=== PATIENT | female | born 1980 | race Caucasian/White ===

== ENCOUNTER 2025-05-13 00:19 | Emergency (ER) | payer BC, SELFPAY ==
[2025-05-13 00:23] VITALS: BP 161/100
[2025-05-13 00:30] VITALS: BP 163/107
[2025-05-13 00:41] VITALS: BMI 27.5
--- NOTE | 2025-05-13 00:58 | ED.GENMED ---
History of Present Illness
<Brianna Elkins MD, Resident - Last Filed: 05/13/25 06:54>
General
Chief Complaint: Chest Pain
Source: patient
Time Seen by Provider: 05/13/25 00:29
History of Present Illness
History of Present Illness:
45-year-old female with past medical history of hypothyroidism presents to the ER for chest tightness and shortness of breath. While she was driving home from work around 11:30pm, she felt sudden onset shortness of breath, chest tightness, numbness
and tingling in her lips and cheeks and could not stop shaking. She feels like she was shot with adrenaline. The symptoms started to decrease and then she had another similar episode. This happened 4-5 times at which point she decided to come to
the hospital for further evaluation. She did sit in the parking lot for a few minutes before coming into the ER. While in the car, she endorses chest tightness in the center of her chest. Chest tightness has dissipated while in the ER and she now
describes it as a sharp left sided chest pain that radiates into the left side of her neck and left armpit. On her Apple Watch, her heart rate went into the 150s. She has no smoking history, has an IUD for control, no recent prolonger period
of immobilization. She has had an increased amount of stress in her life recently, but she was not thinking of anything stressful when the event occurs. She had a history of anxiety and panic attacks many years ago, but she has had no recurrence for
many years.
She did have a cold last week with fevers, chills, runny nose, sore throat. She had the flu shot in the middle of it and felt her cold symptoms got worse afterwards. Today was the first day she felt almost back to normal. There is no positional
chest pain or pleurisy.
Past History
<Brianna Elkins MD, Resident - Last Filed: 05/13/25 06:54>
Past History
ED Past Medical History: HTN, Hypothyroidism, Other (anxiety with panic attacks many years ago. ) and Other (R leg seroma )
ED Past Surgical History: Tonsilectomy and Other (Rotator cuff, plantar fasciitis )
Social History
Tobacco: Non-smoker
Alcohol: None
Drug: None
Personal:
Living: with family
Employment: Employed
Family History
Family History: CAD (Father, no early onset CAD )
Review of Systems
<Brianna Elkins MD, Resident - Last Filed: 05/13/25 06:54>
Review of Systems
Allergies reviewed?: Yes
Constitutional: Reports no symptoms
EENT: Reports no symptoms
Respiratory: Reports trouble breathing
Cardiac: Reports chest pain and palpitations
ABD/GI: Reports nausea
: Reports no symptoms
Musculoskeletal: Reports no symptoms
Skin: Reports no symptoms
Neurological: Reports dizzy
Endocrine: Reports no symptoms
Hematologic/Lymphatic: Reports no symptoms
Psychiatric: Reports no symptoms
Phy Exam
<Brianna Elkins MD, Resident - Last Filed: 05/13/25 06:54>
Physical Exam
Physical Exam:
General: Flushed, shaking, alert
Head: Atraumatic,
Neck: No carotid bruits
Cardiac: Regular S1, S2, no murmurs
Respiratory: Clear breath sounds bilaterally, no wheezes or rales
Abdomen: Soft, non-tender, non-distended, normal bowel sounds
Neurologic: non-focal
Extremities: No peripheral edema or erythema
Scores
<Brianna Elkins MD, Resident - Last Filed: 05/13/25 06:54>
Heart Score for Chest Pain Patients
STEMI patient?: No
History: Slightly or Non-Suspicious
ECG: Normal
Age: </= 45 years
Risk Factors: 1 or 2 Risk Factors
Troponin: </= Normal Limit
Heart Score for Chest Pain Patients: 1
Heart Score Risk: 2.5% MACE over next 6 weeks
Course
<Brianna Elkins MD, Resident - Last Filed: 05/13/25 06:54>
Orders/Labs/Results
Orders:
Orders
05/13/25 00:20
EKG [Electrocardiogram (*1)] Urgent
Reason for Study: Chest Pain
EKG- Treatment ONCE
05/13/25 00:39
Cardiac Monitoring- Treatment ONCE
05/13/25 00:40
Test Result ONCE
05/13/25 00:42
Complete Blood Count/With Diff Urgent
Comprehensive Metabolic Panel Urgent
HCG, Serum Qualitative Screen Urgent
Comment: Notify provider if positive test present
TSH Reflex To Free T4 Urgent
Troponin I Urgent
05/13/25 00:58
D-Dimer Urgent
05/13/25 01:48
Mag Hydrox/Al Hydrox/Simeth [Maalox] 30 ml Phenobarb/Hyoscy/Atropine/Scop [] 10 ml Viscous Lidocaine 2% [Xylocaine Viscous Cup] 10 ml PO NOW
Pantoprazole [Protonix IV] 40 mg IV NOW STA
05/13/25 01:58
Mag Hydrox/Al Hydrox/Simeth [Maalox] 30 ml .ROUTE .STK-MED ONE
Phenobarb/Hyoscy/Atropine/Scop [] 10 ml .ROUTE .STK-MED ONE
Viscous Lidocaine 2% [Xylocaine Viscous Cup] 15 ml .ROUTE .STK-MED ONE
05/13/25 02:01
EKG- Treatment ONCE
05/13/25 02:29
Troponin I Urgent
05/13/25 02:30
Electrocardiogram (*1) Urgent
Reason for Study: Chest Pain
Abnormal Lab Results
05/13/25
00:42
RBC 3.93 L 10^6/uL
(4.20-5.40)
Hct 36.3 L %
(37.0-47.0)
MCH 32.6 H pg
(27.0-31.0)
RDW 11.1 L %
(11.5-14.5)
05/13/25 00:42
05/13/25 00:42
Vital Signs
Initial and Last Documented VS:
Initial Vital Signs
Temp
97.7 F
05/13/25 00:21
Last Documented Vital Signs
Temp Pulse Resp BP Pulse Ox
97.7 F 86 14 131/89 99
05/13/25 00:21 05/13/25 04:00 05/13/25 04:00 05/13/25 04:00 05/13/25 04:00
<Ewelina López, - Last Filed: 05/13/25 03:55>
Orders/Labs/Results
Orders:
Orders
05/13/25 00:20
EKG [Electrocardiogram (*1)] Urgent
Reason for Study: Chest Pain
EKG- Treatment ONCE
05/13/25 00:39
Cardiac Monitoring- Treatment ONCE
05/13/25 00:40
Test Result ONCE
05/13/25 00:42
Complete Blood Count/With Diff Urgent
Comprehensive Metabolic Panel Urgent
HCG, Serum Qualitative Screen Urgent
Comment: Notify provider if positive test present
TSH Reflex To Free T4 Urgent
Troponin I Urgent
05/13/25 00:58
D-Dimer Urgent
05/13/25 01:48
Mag Hydrox/Al Hydrox/Simeth [Maalox] 30 ml Phenobarb/Hyoscy/Atropine/Scop [] 10 ml Viscous Lidocaine 2% [Xylocaine Viscous Cup] 10 ml PO NOW
Pantoprazole [Protonix IV] 40 mg IV NOW STA
05/13/25 01:58
Mag Hydrox/Al Hydrox/Simeth [Maalox] 30 ml .ROUTE .STK-MED ONE
Phenobarb/Hyoscy/Atropine/Scop [] 10 ml .ROUTE .STK-MED ONE
Viscous Lidocaine 2% [Xylocaine Viscous Cup] 15 ml .ROUTE .STK-MED ONE
05/13/25 02:01
EKG- Treatment ONCE
05/13/25 02:29
Troponin I Urgent
05/13/25 02:30
Electrocardiogram (*1) Urgent
Reason for Study: Chest Pain
Abnormal Lab Results
05/13/25
00:42
RBC 3.93 L 10^6/uL
(4.20-5.40)
Hct 36.3 L %
(37.0-47.0)
MCH 32.6 H pg
(27.0-31.0)
RDW 11.1 L %
(11.5-14.5)
05/13/25 00:42
05/13/25 00:42
Vital Signs
Initial and Last Documented VS:
Initial Vital Signs
Temp
97.7 F
05/13/25 00:21
Last Documented Vital Signs
Temp Pulse Resp BP Pulse Ox
97.7 F 86 14 131/89 99
05/13/25 00:21 05/13/25 04:00 05/13/25 04:00 05/13/25 04:00 05/13/25 04:00
<Brianna Elkins MD, Resident - Last Filed: 05/13/25 06:54>
MDM/Problems Addressed
Differential Diagnosis Includes:
[place], PE, pneumonia, upper respiratory tract infection, anxiety, panic attack, GERD, aortic dissection, levothyroxine overdose
MDM/Problems Addressed:
Will check CBC, CMP, troponin, D-dimer. EKG nonischemic. D-dimer to rule out PE.
02:11
D-dimer is negative at 0.30, making PE highly unlikely. Troponin is negative however as symptoms started around 11:30, will get repeat troponin for completeness. TSH is 3.81 making thyroid related cause unlikely. While she has been here, her
symptoms have improved along with her BP and HR. Will try GI cocktail for nausea to assess for possible GERD.
03:50
Repeat troponin negative. Repeat EKG no ischemic changes. She is feeling significantly better after GI cocktail. Will discharge with work note. Likely a combination of GERD and anxiety. Will recommend a trial on a PPI. She did not increase her GLP-1
recently.
Chronic conditions affecting care: HTN and Psychiatric illness
<Brianna Elkins MD, Resident - Last Filed: 05/13/25 06:54>
*Pulse Oximetry
SaO2: 100
Oxygen Mode of Delivery: Room air
Patient hypoxic: no
*EKG
Interpreted by ED Provider?: Yes
Interpretation: normal
Rate: normal
Rhythm: sinus
[place]: normal axis
Ischemia: no ischemia
*Critical Care Note
Total Time (30-74mins, 75-104mins- exclusive of procedures): Not Applicable
ED Attending Note
<Brianna Elkins MD, Resident - Last Filed: 05/13/25 06:54>
-
Portions of this chart may have been created with voice recognition software.� Occasional wrong word or��sound alike� substitutions may have occurred due to the inherent limitations of voice recognition software.
<Ewelina López, DO - Last Filed: 05/13/25 03:55>
ED Attending Note
Patient seen and examined by attending physician: Yes
I performed a history and physical exam of patient and discussed management with resident, I reviewed resident's note and agree with documented findings and plan of care.: Yes
ED Attending Note:
This is a 45-year-old woman with history of hypertension, hypothyroidism, anxiety. She presents with acute onset of panic/anxiety which she states felt like a 'nguy[place] of adrenaline' while driving home from work just prior to arrival. With this 'nguy[place]
of adrenaline' she developed chest pain, palpitations, shortness of breath, lightheadedness, circumoral paresthesia.
She does note similar episodes on rare occasions which are generally brief which she attributes to panic attacks but current episode seem to persist coming in frequent waves prompting her to drive to the ED.
She sat in the parking lot for a few minutes and felt better but continued with chest pain and shortness of breath, worse with ambulating into the ED.
Currently feeling markedly improved.
She did suffer a mild URI a week and a half ago which has since resolved.
No recent travel, no leg pain or swelling.
Has IUD in place. Denies risk of . Non-smoker.
45-year-old woman appears her stated age, bright alert, pleasant, mildly anxious but easily communicative and overall in no acute distress.
Heart is regular rate and rhythm. No murmur no rub.
Lungs are clear to auscultation.
Abdomen is soft without appreciable tenderness.
Concern for ACS, GERD, tacky arrhythmia, PE, anxiety/panic attack, thyroid disorder. Pneumonia/CHF, pulmonary disease much less likely. URI symptoms have resolved, lungs are clear to auscultation. Pulse ox 100% on room air. No respiratory
distress.
EKG is unremarkable.
Monitor shows normal sinus rhythm.
Will check labs including troponin, D-dimer and will check TSH. Patient chronically maintained on levothyroxine. Has been losing weight successfully with Zepbound. No recent change in levothyroxine dose.
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
Will trial GI cocktail and a dose of Protonix for potential GERD.
03:50
Patient feeling improved after GI cocktail and Protonix.
Chest pain has resolved.
Monitor continues to show normal sinus rhythm.
Repeat EKG is unremarkable and repeat troponin remains negative.
I suspect an episode of GERD may have brought on acute panic.
If chest pain recurs recommend initiation of an [id number] PPI.
[place] diet.
Prompt follow-up with PCP for recheck.
Discharge Plan
Departure
Patient Disposition: Home (Routine Discharge)
Patient with high blood pressure during this ER visit?: Yes
Discharge Problem:
acute panic attack, acute GERD
Instructions: Acid Reflux and GERD in Adults (DC), Chest Pain DCA Follow Up
Referrals:
Racheal Cohn MD [Family Provider, Internal Medicine] - Call in 1-3 days for appt
Stand Alone Forms: Return to Work
Interventions
Interventions:
*Risk Screen - Suicide Last Done: 05/13/25 00:21
*General Assessment Last Done: 05/13/25 00:21
*Neglect/Abuse Screening Last Done: 05/13/25 00:21
*ED- Fall Risk Assessment Last Done: 05/13/25 00:37
*ED COVID-19 Vaccine History Last Done: 05/13/25 00:37
*ED Influenza Vaccine History Last Done: 05/13/25 00:37
*Nursing Disposition Last Done: 05/13/25 04:30
ED- Cardiac Assessment Last Done: 05/13/25 00:37
Discharge Date and Time
Discharge Date/Time: 05/13/25 04:31
Print Language: EMIRATI
[2025-05-13 01:00] VITALS: BP 149/103
[2025-05-13 01:04] LABS: HCG, Serum Qualitative Screen Negative
[2025-05-13 01:08] LABS: Hematocrit 36.3 % (37.0-47.0); Hemoglobin 12.8 g/dL (12.0-16.0); Mean Corp Hgb Conc. 35.3 g/dL (33.0-37.0); Mean Corpuscular Volume 92.4 fL (81.0-99.0); Nucleated Red Blood Cells % 0 %; Platelet Count 248 10^3/uL (130-400); Red Cell Dist. Width 11.1 % (11.5-14.5)
[2025-05-13 01:09] LABS: ALT (SGPT) 30 U/L (0-35); AST (SGOT) 23 U/L (14-36); Albumin 4.4 g/dl (3.5-5.0); Alkaline Phosphatase 66 U/L (38-126); Blood Urea Nitrogen 17 mg/dl (7-17); Calcium 9.2 mg/dl (8.4-10.2); Carbon Dioxide 22 mmol/L (22-30); Chloride 104 mmol/L (98-107); Estimated Creatinine Clearance 102 ml/min; Glucose 95 mg/dl (70-99); Potassium 3.6 mmol/L (3.5-5.1); Sodium 137 mmol/L (135-145); Total Protein 7.0 g/dl (6.3-8.2); eGFR > 60.00
[2025-05-13 01:20] LABS: D-Dimer 0.30 ug/mlFEU (0.00-0.50)
[2025-05-13 01:55] LABS: Troponin I < 0.012 ng/ml
[2025-05-13 02:00] VITALS: BP 129/93
[2025-05-13] MEDS: MAALOX 50 PO (02:00)
[2025-05-13] MEDS: PROTONIX IV 40 MG IV (02:00)
[2025-05-13 03:00] VITALS: BP 125/83
[2025-05-13 03:35] LABS: Troponin I < 0.012 ng/ml
--- NOTE | 2025-05-13 03:42 | EDRN ---
Updated patient on labs, patient is feeling much better, she was unhooked to ambulate to the restroom
[2025-05-13 04:00] VITALS: BP 131/89
== END 2025-05-13 04:31 | disposition home or self-care (01) ==
LOC: EMR 00:19
PROVIDERS: EMERGENCY PHYSICIAN Emergency Medicine; FAMILY PHYSICIAN Student in an Organized Health Care Education/Training Program
DX: F41.0 Panic disorder [episodic paroxysmal anxiety] (principal); K21.9 Gastro-esophageal reflux disease without esophagitis; I10 Essential (primary) hypertension; E03.9 Hypothyroidism, unspecified; F41.9 Anxiety disorder, unspecified; Z82.49 Family history of ischemic heart disease and other diseases of the circulatory system
CPT/HCPCS: 99284; 96374; 80053; 84443; 84484; 84703; 85025; 85379; 93005